=== PATIENT | female | born 1970 | race Caucasian/White ===

== ENCOUNTER 2020-01-08 | Emergency (ER) | payer BC ==
[2020-01-08 07:41] LABS: HEMATOCRIT 40.3 % (37.0-47.0); HEMOGLOBIN 13.8 g/dl (12.0-16.0); IMMATURE GRANULOCYTES 0.2 % (0.0-5.0); MEAN CELL VOLUME 84.1 fL CALC (80.0-100.0); MEAN CORPUSCULAR HGB 28.8 pG CALC (26.0-32.0); MEAN CORPUSCULAR HGB CONC 34.2 g/dL CAL (32.0-36.0); NEUT# 7.64 thou/uL (2.00-7.15); RED BLOOD COUNT 4.79 mill/uL (4.20-5.60); RED CELL DISTRI WIDTH 13.1 % (11.5-15.5)
[2020-01-08] MEDS ORDERED: OMEPRAZOLE DR40 MG PO (07:45)
[2020-01-08 07:55] LABS: ALKALINE PHOSPHATASE 88 u/l (38-126); ANION GAP 12 (6-22 (CALC)); BILIRUBIN, TOTAL 1.2 mg/dL (0.0-1.4); BUN 24 mg/dL (7-17); BUN/CREATININE RATIO 32 (12-20 (CALC)); CARBON DIOXIDE 22 mmol/l (22-30); CHLORIDE 105 mmol/l (95-108); CREATININE 0.7 mg/dL (0.5-1.0); GFR > 60 ML/MIN (>=60 (CALC)); GFR FOR AFR.AMER. > 60 ML/MIN (>=60 (CALC)); LIPASE 59 u/l (23-300); POTASSIUM 3.7 mmol/l (3.5-5.1); SGOT/AST 27 u/l (14-36); SODIUM 136 mmol/l (137-146); TOTAL PROTEIN 6.6 g/dL (6.3-8.2)
[2020-01-08 08:28] LABS: URINE BILIRUBIN - DIPSTICK NEGATIVE (NEGATIVE); URINE BLOOD DIPSTICK NEGATIVE (NEGATIVE); URINE COLOR YELLOW; URINE GLUCOSE - DIPSTICK NEGATIVE (NEGATIVE); URINE KETONE NEGATIVE (NEGATIVE); URINE LEUK ESTERASE NEGATIVE (NEGATIVE); URINE NITRITE - DIPSTICK NEGATIVE (Negative); URINE PH 7.5 (4.5-8.0); URINE PROTEIN - DIPSTICK NEGATIVE (NEG-TRACE); URINE UROBILINOGEN - DIPSTICK 0.2 E.U./dL (0.2)
[2020-01-08] MEDS ORDERED: HYDROCO/APAP1 TA9 PO (09:12)
[2020-01-08] MEDS ORDERED: ONDANSETRON4 MG PO (09:12)
== END 2020-01-08 09:44 | disposition home or self-care (01) | DRG 392 ==
PROVIDERS: Family Medicine
DX: R10.84 Generalized abdominal pain (principal)
CPT/HCPCS: Q9967